=== PATIENT | male | born 1950 | race Two or more races ===

== ENCOUNTER 2022-09-07 01:30 | Inpatient (IN) | payer MEDICARE, MEDICAID ==
[~2022-09-07] VITALS: Ht 170.2 cm; Wt 83.3 kg
[2022-09-07 01:42] VITALS: PULSE 109; RESP 13; O2SAT 97
[2022-09-07 02:19] LABS: Basophils # (auto) 0 10 ^3/uL (0-0.2); Basophils % (auto) 0.4 % (0.0-2.0); Eosinophils # (auto) 0.1 10 ^3/uL (0-0.8); Eosinophils % (auto) 1.5 % (0.0-7.0); Hematocrit 45.3 % (41.0-53.0); Hemoglobin 15.2 g/dL (13.5-17.5); Lymphocytes # (auto) 2.6 10 ^3/uL (0.4-5.4); Lymphocytes % (auto) 35.2 % (10.0-50.0); Mean Corpuscular Hemoglobin 29.4 pg (28.0-32.0); Mean Corpuscular Hgb Conc. 33.4 g/dL (32.0-36.0); Monocytes # (auto) 0.7 10 ^3/uL (0-1.3); Monocytes % (auto) 9.1 % (0.0-12.0); Neutrophils % (auto) 53.8 % (37.0-80.0); Nucleated Red Blood Cells % 0.3 %; Red Blood Cells 5.15 10^6/uL (4.5-5.90); Red Cell Distribution Width 14.8 % (11.8-14.3); White Blood Cell 7.4 10^3/uL (4.4-10.8)
[2022-09-07 02:42] LABS: INR 1.09 (0.9-1.15); Partial Thromboplastin Time 25.1 SEC (24.5-34.5)
[2022-09-07 02:43] LABS: Albumin 3.8 g/dL (3.4-5.0); BUN/Creatinine Ratio 11.4 (10.0-20.0); Calcium 8.5 mg/dL (8.5-10.1); Potassium 3.4 mmol/L (3.5-5.1)
[2022-09-07 02:46] LABS: Bilirubin, Total 0.5 mg/dL (0.2-1.0); Total Protein 7.3 g/dL (6.4-8.2)
[2022-09-07] MEDS ORDERED: ONDANSETRON HCL 4 MG/2 ML VIAL IV ONE ×2 (03:30→05:00)
[2022-09-07] MEDS ORDERED: LIDOCAINE VISCOUS 2% 15ML UD PO ONE (03:30)
[2022-09-07] MEDS ORDERED: METOCLOPRAMIDE HCL 5MG/ml INJ 2ml VIAL IV ONE (03:30)
[2022-09-07] MEDS ORDERED: MAALOX PLUS or MAALOX 30 ML PO ONE (03:30)
[2022-09-07] MEDS ORDERED: FAMOTIDINE (10MG/ML) 2ML VL IV ONE (03:30)
[2022-09-07] MEDS ORDERED: guaiFENesin-DM 100/10mg/5ml SYR PO ONE (03:30)
[2022-09-07] MEDS ORDERED: DONNATAL 5ml ORAL Elix (BELLADONNA ALK-PHENOBARB) PO ONE (03:30)
[2022-09-07] MEDS ORDERED: ACETAMINOPHEN 325 MG TAB PO PRN (04:45)
[2022-09-07] MEDS ORDERED: ONDANSETRON HCL 4 MG/2 ML VIAL IV PRN (04:45)
[2022-09-07] MEDS ORDERED: HYDROcodone-ACET 5/325MG TAB PO PRN (04:45)
[2022-09-07] MEDS ORDERED: DOCUSATE SOD 100 MG CAP PO PRN (04:45)
[2022-09-07] MEDS ORDERED: guaiFENesin 200 MG/10 ML UD PO PRN (04:45)
[2022-09-07] MEDS ORDERED: NITROGLYCERIN 0.4 MG SL TAB SL ONE (05:00)
[2022-09-07] MEDS ORDERED: MORPHINE SULFATE 4 MG/ML SYR/VIAL IV PRN (05:00)
[2022-09-07] MEDS ORDERED: ASPirin 81 mg TAB PO ONE (05:00)
[2022-09-07] MEDS: ENOXAPARIN SOD 100 MG/1 ML SYRINGE SC ONE ×2 (06:11→06:23)
[2022-09-07] MEDS: SODIUM CHLOR 0.9% PF (SALINE LOCK) 10ML VIAL/SYR IV SCH ×3 (06:13→22:04)
[2022-09-07 06:28] LABS: Basophils # (auto) 0 10 ^3/uL (0-0.2); Basophils % (auto) 0.2 % (0.0-2.0); Eosinophils # (auto) 0 10 ^3/uL (0-0.8); Hemoglobin 14.4 g/dL (13.5-17.5); Lymphocytes # (auto) 0.7 10 ^3/uL (0.4-5.4); Lymphocytes % (auto) 6.4 % (10.0-50.0); Mean Corpuscular Hemoglobin 29.4 pg (28.0-32.0); Mean Corpuscular Hgb Conc. 32.6 g/dL (32.0-36.0); Mean Corpuscular Volume 90.1 fL (80.0-100.0); Monocytes # (auto) 0.9 10 ^3/uL (0-1.3); Monocytes % (auto) 7.5 % (0.0-12.0); Neutrophils % (auto) 85.9 % (37.0-80.0); Red Blood Cells 4.89 10^6/uL (4.5-5.90); Red Cell Distribution Width 14.6 % (11.8-14.3); White Blood Cell 11.7 10^3/uL (4.4-10.8)
[2022-09-07] MEDS ORDERED: methylPREDNISolone SOD SUCC 40 MG/ML VL IV ONE (06:30)
[2022-09-07] MEDS ORDERED: NITROGLYCERIN 0.4 MG SL TAB SL PRN (06:30)
[2022-09-07] MEDS ORDERED: MORPHINE SULFATE INJ 2 MG/ml SYRG IV PRN (06:30)
[2022-09-07 06:44] LABS: Potassium 4.3 mmol/L (3.5-5.1)
[2022-09-07 06:56] LABS: Albumin 3.4 g/dL (3.4-5.0); BUN/Creatinine Ratio 15.3 (10.0-20.0); Bilirubin, Total 0.4 mg/dL (0.2-1.0); Calcium 8.9 mg/dL (8.5-10.1); Total Protein 6.7 g/dL (6.4-8.2)
[2022-09-07] MEDS: POTASSIUM CHL 20 Meq TABLET PO ONE ×2 (06:56→06:58)
[2022-09-07 08:05] VITALS: PULSE 81; RESP 10; O2SAT 97
[2022-09-07] MEDS ORDERED: LISI10TA34 PO (09:10)
[2022-09-07 09:32] LABS: Cholesterol 115 mg/dL (< 200)
[2022-09-07 09:35] LABS: HDL Cholesterol 36 mg/dL (40-59); LDL Cholesterol 72 mg/dL (< 100); Triglycerides 101 mg/dL (< 150)
[2022-09-07] MEDS: HEPARIN SODIUM (PORCINE) 5000 UNITS/ML 1ML VIAL SC SCH ×2 (11:48→22:05)
[2022-09-07] MEDS: FAMOTIDINE (10MG/ML) 2ML VL IV SCH ×2 (12:01→22:04)
[2022-09-07] MEDS: ASPirin 81 mg TAB PO SCH (12:01)
[2022-09-07] MEDS: LISINOPRIL 10 MG TAB PO SCH (12:08)
[2022-09-07] MEDS: methylPREDNISolone SOD SUCC 40 MG/ML VL IV SCH ×2 (15:02→22:04)
[2022-09-07 19:25] VITALS: PULSE 73; RESP 14; O2SAT 97
[2022-09-07 21:20] VITALS: BP 141/83; PULSE 80; RESP 16; TEMP 97.5; O2SAT 99
[2022-09-07] MEDS: ATORVASTATIN 20 MG TAB PO SCH (22:00)
[2022-09-08] VITALS (7 sets, daily range): BP systolic 118–156; BP diastolic 67–93; PULSE 58–106; RESP 16–20; TEMP 97.8–98.3; O2SAT 95–100
[2022-09-08] MEDS ORDERED: ATOR40TA52 PO (00:36)
[2022-09-08] MEDS ORDERED: TAMS0.4C36 PO (00:36)
[2022-09-08] MEDS ORDERED: PANT40T PO (00:36)
[2022-09-08] MEDS: methylPREDNISolone SOD SUCC 40 MG/ML VL IV SCH ×2 (05:54→13:59)
[2022-09-08] MEDS: SODIUM CHLOR 0.9% PF (SALINE LOCK) 10ML VIAL/SYR IV SCH ×3 (05:54→21:55)
[2022-09-08 06:09] LABS: Basophils # (auto) 0 10 ^3/uL (0-0.2); Eosinophils # (auto) 0 10 ^3/uL (0-0.8); Hematocrit 44.3 % (41.0-53.0); Hemoglobin 14.6 g/dL (13.5-17.5); Lymphocytes # (auto) 0.8 10 ^3/uL (0.4-5.4); Lymphocytes % (auto) 4.6 % (10.0-50.0); Mean Corpuscular Hemoglobin 29.2 pg (28.0-32.0); Mean Corpuscular Volume 88.5 fL (80.0-100.0); Monocytes # (auto) 0.6 10 ^3/uL (0-1.3); Monocytes % (auto) 3.9 % (0.0-12.0); Neutrophils # (auto) 15.1 10 ^3/uL (1.6-8.6); Neutrophils % (auto) 91.5 % (37.0-80.0); Nucleated Red Blood Cells % 0.1 %; Red Blood Cells 5.01 10^6/uL (4.5-5.90); Red Cell Distribution Width 14.8 % (11.8-14.3); White Blood Cell 16.5 10^3/uL (4.4-10.8)
[2022-09-08 06:36] LABS: Calcium 8.6 mg/dL (8.5-10.1); Potassium 4.7 mmol/L (3.5-5.1)
[2022-09-08 06:42] LABS: Albumin 3.4 g/dL (3.4-5.0); BUN/Creatinine Ratio 19.2 (10.0-20.0); Bilirubin, Total 0.5 mg/dL (0.2-1.0); Total Protein 6.6 g/dL (6.4-8.2)
[2022-09-08] MEDS ORDERED: FUROSEMIDE 100 MG/10ML VIAL IV SCH (10:00)
[2022-09-08] MEDS: ASPirin 81 mg TAB PO SCH (11:28)
[2022-09-08] MEDS: LISINOPRIL 10 MG TAB PO SCH (11:29)
[2022-09-08] MEDS: FAMOTIDINE (10MG/ML) 2ML VL IV SCH (11:29)
[2022-09-08] MEDS: HEPARIN SODIUM (PORCINE) 5000 UNITS/ML 1ML VIAL SC SCH ×2 (11:32→22:03)
[2022-09-08 14:18] LABS: Urine Bacteria NONE SEEN /hpf (None Seen); Urine Blood Negative /uL (Negative); Urine Specific Gravity 1.015 (1.001-1.035); Urine WBC <1 /hpf (0 - 3)
[2022-09-08 14:32] LABS: Alcohol, Urine < 3.0 mg/dL (0-10); Amphetamine Screen, Urine NEGATIVE (NEGATIVE); Barbiturate Scree,Urine NEGATIVE (NEGATIVE); Benzodiazephine Screen, Urine NEGATIVE (NEGATIVE); Cannabinoid Screen, Urine NEGATIVE (NEGATIVE); Cocaine Screen, Urine NEGATIVE (NEGATIVE); Opiate Scree,Urine NEGATIVE (NEGATIVE); Phencyclidine Screen, Urine NEGATIVE (NEGATIVE)
[2022-09-08] MEDS ORDERED: levoFLOXacin 500MG 100 ML IV ONE (15:45)
[2022-09-08 19:44] LABS: Basophils # (auto) 0 10 ^3/uL (0-0.2); Basophils % (auto) 0.1 % (0.0-2.0); Eosinophils # (auto) 0 10 ^3/uL (0-0.8); Hematocrit 47.5 % (41.0-53.0); Hemoglobin 15.3 g/dL (13.5-17.5); Lymphocytes # (auto) 0.8 10 ^3/uL (0.4-5.4); Lymphocytes % (auto) 4.1 % (10.0-50.0); Mean Corpuscular Hemoglobin 28.8 pg (28.0-32.0); Mean Corpuscular Hgb Conc. 32.3 g/dL (32.0-36.0); Mean Corpuscular Volume 89.1 fL (80.0-100.0); Monocytes # (auto) 0.5 10 ^3/uL (0-1.3); Monocytes % (auto) 2.5 % (0.0-12.0); Neutrophils # (auto) 17.3 10 ^3/uL (1.6-8.6); Neutrophils % (auto) 93.3 % (37.0-80.0); Nucleated Red Blood Cells % 0.1 %; Red Blood Cells 5.33 10^6/uL (4.5-5.90); Red Cell Distribution Width 14.8 % (11.8-14.3); White Blood Cell 18.5 10^3/uL (4.4-10.8)
[2022-09-08 20:19] LABS: Calcium 8.8 mg/dL (8.5-10.1); Potassium 4.2 mmol/L (3.5-5.1)
[2022-09-08 20:21] LABS: BUN/Creatinine Ratio 22.5 (10.0-20.0)
[2022-09-08] MEDS: metroNIDAZOLE 500MG/100ML 100 ML IV SCH (21:55)
[2022-09-08] MEDS: ATORVASTATIN 20 MG TAB PO SCH (21:58)
[2022-09-08] MEDS ORDERED: PANTOPRAZOLE 40 MG/10 ML VIAL INJ IV SCH (22:00)
[2022-09-09] VITALS (8 sets, daily range): BP systolic 113–142; BP diastolic 41–72; PULSE 64–92; RESP 14–20; TEMP 97.2–98.1; O2SAT 95–97
[2022-09-09] MEDS: metroNIDAZOLE 500MG/100ML 100 ML IV SCH ×3 (05:44→22:00)
[2022-09-09] MEDS: SODIUM CHLOR 0.9% PF (SALINE LOCK) 10ML VIAL/SYR IV SCH ×3 (05:46→22:00)
[2022-09-09] MEDS ORDERED: ADENOSINE 74 MG in GIVE UN-DILUTED 0 ML IV STA (07:56)
[2022-09-09] MEDS: ASPirin 81 mg TAB PO SCH (11:06)
[2022-09-09] MEDS: levoFLOXacin 500MG 100 ML IV SCH (11:06)
[2022-09-09] MEDS: LISINOPRIL 10 MG TAB PO SCH (11:07)
[2022-09-09] MEDS: HEPARIN SODIUM (PORCINE) 5000 UNITS/ML 1ML VIAL SC SCH ×2 (11:10→22:00)
[2022-09-09 11:48] LABS: Basophils # (auto) 0 10 ^3/uL (0-0.2); Eosinophils # (auto) 0 10 ^3/uL (0-0.8); Hematocrit 44.9 % (41.0-53.0); Hemoglobin 14.8 g/dL (13.5-17.5); Lymphocytes # (auto) 1.4 10 ^3/uL (0.4-5.4); Lymphocytes % (auto) 10.2 % (10.0-50.0); Mean Corpuscular Hemoglobin 29.2 pg (28.0-32.0); Mean Corpuscular Hgb Conc. 32.9 g/dL (32.0-36.0); Mean Corpuscular Volume 88.6 fL (80.0-100.0); Monocytes # (auto) 1.5 10 ^3/uL (0-1.3); Monocytes % (auto) 10.4 % (0.0-12.0); Neutrophils # (auto) 11.2 10 ^3/uL (1.6-8.6); Neutrophils % (auto) 79.4 % (37.0-80.0); Red Blood Cells 5.07 10^6/uL (4.5-5.90); Red Cell Distribution Width 14.7 % (11.8-14.3); White Blood Cell 14.2 10^3/uL (4.4-10.8)
[2022-09-09 12:01] LABS: Potassium 3.9 mmol/L (3.5-5.1)
[2022-09-09 12:13] LABS: BUN/Creatinine Ratio 37.2 (10.0-20.0); Calcium 8.7 mg/dL (8.5-10.1)
[2022-09-09] MEDS ORDERED: ATORVASTATIN 20 MG TAB PO SCH (22:00)
[2022-09-09] MEDS: PANTOPRAZOLE 40 MG TAB PO SCH (22:20)
[2022-09-10 05:00] VITALS: BP 105/66; PULSE 75; RESP 12; TEMP 97.7; O2SAT 94
[2022-09-10 08:05] VITALS: PULSE 70
[2022-09-10 08:30] VITALS: BP 110/47; PULSE 69; RESP 17; TEMP 97.7
[2022-09-10 08:38] LABS: Basophils # (auto) 0 10 ^3/uL (0-0.2); Basophils % (auto) 0.7 % (0.0-2.0); Eosinophils # (auto) 0.4 10 ^3/uL (0-0.8); Eosinophils % (auto) 4.9 % (0.0-7.0); Hematocrit 42.1 % (41.0-53.0); Hemoglobin 13.8 g/dL (13.5-17.5); Lymphocytes # (auto) 1.8 10 ^3/uL (0.4-5.4); Lymphocytes % (auto) 24.9 % (10.0-50.0); Mean Corpuscular Hemoglobin 29.1 pg (28.0-32.0); Mean Corpuscular Hgb Conc. 32.9 g/dL (32.0-36.0); Mean Corpuscular Volume 88.4 fL (80.0-100.0); Monocytes % (auto) 13.4 % (0.0-12.0); Neutrophils # (auto) 4.1 10 ^3/uL (1.6-8.6); Neutrophils % (auto) 56.1 % (37.0-80.0); Nucleated Red Blood Cells % 0.2 %; Red Blood Cells 4.76 10^6/uL (4.5-5.90); Red Cell Distribution Width 14.8 % (11.8-14.3); White Blood Cell 7.4 10^3/uL (4.4-10.8)
[2022-09-10 08:58] LABS: BUN/Creatinine Ratio 28.4 (10.0-20.0); Calcium 8.2 mg/dL (8.5-10.1); Potassium 4.2 mmol/L (3.5-5.1)
[2022-09-10 09:00] VITALS: BP 110/47; PULSE 69; RESP 17; TEMP 97.7; O2SAT 96
[2022-09-10] MEDS: levoFLOXacin 500MG 100 ML IV SCH (09:51)
[2022-09-10] MEDS: ASPirin 81 mg TAB PO SCH (09:52)
[2022-09-10] MEDS: PANTOPRAZOLE 40 MG TAB PO SCH (09:52)
[2022-09-10] MEDS: LISINOPRIL 10 MG TAB PO SCH (10:00)
[2022-09-10] MEDS: HEPARIN SODIUM (PORCINE) 5000 UNITS/ML 1ML VIAL SC SCH (10:03)
[2022-09-10] MEDS: SODIUM CHLOR 0.9% PF (SALINE LOCK) 10ML VIAL/SYR IV SCH (10:04)
[2022-09-10] MEDS ORDERED: METR-344 PO (11:29)
[2022-09-10] MEDS ORDERED: LEVO500T91 PO (11:29)
[2022-09-10 12:11] VITALS: BP 110/47
== END 2022-09-10 13:40 | disposition home or self-care (01) | DRG 720 ==
LOC: ER 01:30 → TELE 06:24 → TELE-WESTW 21:12
PROVIDERS: ADMIT Internal Medicine; ATTEND Nurse Practitioner Family
DX: A41.9 Sepsis, unspecified organism (principal); J96.01 Acute respiratory failure with hypoxia; I21.4 Non-ST elevation (NSTEMI) myocardial infarction; J69.0 Pneumonitis due to inhalation of food and vomit; N17.9 Acute kidney failure, unspecified; I50.33 Acute on chronic diastolic (congestive) heart failure; E78.5 Hyperlipidemia, unspecified; E87.6 Hypokalemia; N18.9 Chronic kidney disease, unspecified; I13.0 Hypertensive heart and chronic kidney disease with heart failure and stage 1 through stage 4 chronic kidney disease, or unspecified chronic kidney disease; J38.5 Laryngeal spasm; J98.11 Atelectasis; K44.9 Diaphragmatic hernia without obstruction or gangrene; E66.9 Obesity, unspecified; R10.13 Epigastric pain; K21.9 Gastro-esophageal reflux disease without esophagitis; M54.50 Low back pain, unspecified; N43.3 Hydrocele, unspecified; N40.0 Benign prostatic hyperplasia without lower urinary tract symptoms; I73.9 Peripheral vascular disease, unspecified; Z79.899 Other long term (current) drug therapy; Z68.28 Body mass index [BMI] 28.0-28.9, adult
CPT/HCPCS: 36415; 71045; 71275; 78452; 80048; 80053; 80061; 80307; 81001; 83036; 83880; 84443; 84484; 85025; 85610; 85730; 87040; 93005; 93017; 93306; 93970; 96372; 96374; C9113; G0378; J0153; J1956; J3490